=== PATIENT | female | born 1990 | race Caucasian/White ===

== ENCOUNTER 2023-04-25 13:49 | Inpatient (IN) | payer MEDICAID, OTHER ==
[~2023-04-25] VITALS: Ht 160 cm; Wt 65.0 kg
[2023-04-25] MEDS ORDERED: LORazepam 1 MG tablet PO ONE ×2 (15:10→18:20)
[2023-04-25] MEDS ORDERED: OLANZapine 5mg rapidly disint. tablet PO ONE (15:10)
[2023-04-25 15:44] LABS: BASOPHILS # (AUTO) 0.1 X10'3 (0-0.2); BASOPHILS % (AUTO) 0.8 % (0-1); EOSINOPHILS % (AUTO) 0.5 % (0-6); HEMATOCRIT 45.2 % (35.0-45.0); HEMOGLOBIN 15.4 g/dl (12.0-16.0); LYMPHOCYTES # (AUTO) 0.7 X10'3 (1.1-4.8); LYMPHOCYTES % (AUTO) 9.9 % (21-51); MEAN CORPUSCULAR HEMOGLOBIN 33.7 PG (27.0-31.0); MEAN CORPUSCULAR HGB CONC 34.1 g/dL (33.0-36.5); MEAN CORPUSCULAR VOLUME 98.9 FL (78-98); MEAN PLATELET VOLUME 8.8 FL (7.4-10.4); MONOCYTES # (AUTO) 0.7 X10'3 (0-0.9); MONOCYTES % (AUTO) 8.9 % (2-12); NEUTROPHILS # (AUTO) 5.9 X10'3 (1.8-7.7); NEUTROPHILS % (AUTO) 79.9 % (42-75); PLATELET COUNT 176 X10'3 (140-440); RED BLOOD COUNT 4.57 X10'6 (4.20-5.60); RED CELL DISTRIBUTION WIDTH 15.2 % (11.5-14.5); WHITE BLOOD COUNT 7.3 X10'3 (4.5-11.0)
[2023-04-25 16:07] LABS: ALANINE AMINOTRANSFERASE 86 U/L (12-78); ALBUMIN 4.6 G/DL (3.4-5.0); ALBUMIN/GLOBULIN RATIO 1.2 (1.1-1.5); ALKALINE PHOSPHATASE 87 IU/L (46-116); ANION GAP 14 (8-16); ASPARTATE AMINO TRANSFERASE 92 U/L (10-37); BILIRUBIN,TOTAL 1.6 MG/DL (0.1-1.0); BLOOD UREA NITROGEN 6 MG/DL (7-18); CHLORIDE 88 MMOL/L (99-107); ETHANOL < 10 MG/DL (<10); GLUCOSE 136 MG/DL (70-104); SODIUM 131 MMOL/L (135-145); THYROID STIMULATING HORMONE 4.01 ulU/ml (0.34-4.50); TOTAL CARBON DIOXIDE 29.4 MMOL/L (24-32); TOTAL PROTEIN 8.4 G/DL (6.4-8.2); eCRCL 111 ML/MIN; eGFR > 90 ML/MIN
[2023-04-25 16:27] LABS: POTASSIUM 2.7 MMOL/L (3.5-5.1)
[2023-04-25 16:30] LABS: BILIRUBIN,URINE LARGE (Neg); CLARITY,URINE CLOUDY (Clear); COLOR,URINE YELLOW (Yellow); GLUCOSE, URINE NEGATIVE (Neg); KETONES,URINE >=80 mg/dl (Neg); LEUKOCYTE ESTERASE ,URINE NEGATIVE (Neg); NITRITES, URINE POSITIVE (Neg); OCCULT BLOOD,URINE SMALL (Neg); PH,URINE 6.5 (4.8-8.0); PROTEIN,URINE >=300 mg/dl (Neg)
[2023-04-25] MEDS ORDERED: POTASSIUM BICARB 20meq eff tab 20 MEQ TABLET.EFF PO ONE (16:30)
[2023-04-25 16:31] LABS: URINE HCG NEGATIVE (NEG)
[2023-04-25 16:34] LABS: UA COLLECTION TYPE CLN CATCH MIDSTREAM
[2023-04-25 16:40] LABS: MUCUS STRANDS MANY /LPF (Neg); SQUAMOUS EPITHELIAL CELL,UR MANY /LPF (FEW)
[2023-04-25 16:41] LABS: BACTERIA,URINE 2+ /HPF (Neg); RBC,URINE 0-2 /HPF (0-2); WBC,URINE 0-4 /HPF (0-4)
[2023-04-25 16:43] LABS: URINE AMPHETAMINE SCREEN POSITIVE (Neg); URINE BARBITUATE SCREEN NEGATIVE (Neg); URINE BENZODIAZEPINES SCREEN NEGATIVE (Neg); URINE CANNABINOID SCREEN NEGATIVE (Neg); URINE COCAINE SCREEN NEGATIVE (Neg); URINE METHADONE SCREEN NEGATIVE (Neg); URINE OPIATE SCREEN NEGATIVE (Neg); URINE PHENCYCLIDINE SCREEN NEGATIVE (Neg)
[2023-04-25] MEDS ORDERED: QUEtiapine 25mg tablet PO STA (18:19)
--- NOTE | 2023-04-25 18:30 | NUR ---
REPORT CALLED TO DESHAUN TOLENTINO IN OVERFLOW, QUESTIONS ANSWERED. MEDICATED WITH ATIVAN PRIOR TO BEING TRANSFERRED TO OVERFLOW VIA W/C WITH PARENTS.
[2023-04-25] MEDS ORDERED: OLANZapine **IM** 10 mg inj. IM ONE (18:55)
--- NOTE | 2023-04-25 19:37 | NUR ---
Patient is very shakey and RN attempting to push fluids. Patient will not suck on the straw. RN felt patient's pulse and feels tachycardic. Skin is warm and dry. Patint looks dehydrated. Parents at bedside. RN to ask for I.V. fluids for patient. Continue to monitor.
--- NOTE | 2023-04-25 19:40 | NUR ---
Patient is non-verbal. Patient is not responding to questions. Patient does not appear to be oriented. Patient's father at bedside attempting to calm her as she is trembling. Continue to monitor.
[2023-04-25] MEDS ORDERED: magnesium oxide 400mg tablet PO ONE (19:50)
[2023-04-25] MEDS ORDERED: normal saline 1000ml 1,000 ML IV ONE ×2 (19:55→20:40)
[2023-04-25 19:59] LABS: MAGNESIUM 1.5 MG/DL (1.5-2.4)
--- NOTE | 2023-04-25 20:03 | NUR ---
28 Suboxone films with Mother if needed for admission to other than [facility].
--- NOTE | 2023-04-25 20:03 | NUR ---
Oralia Espinal [phone] home phone. [phone] Cell phone.
--- NOTE | 2023-04-25 20:19 | NUR ---
I.V. Started in left hand. RN placed patient on a [employer]. Patient's HR fluctuating between [address] Vanegas come look at patient. Dr. Vanegas ordered an EGK and a second bag of N.S. I.V. Patient is not and has not verbalized well. Patient is positive for meth and also did shrooms. RN had a difficult time getting a BP. BP by manual blood pressure cuff is WNL. Continue to monitor.
--- NOTE | 2023-04-25 20:20 | NUR ---
RN place patient in non-behavioral restraints, verbal order Dr. Vanegas due to not obeying commands, pulling at her I.V. site and confusion. Patient is nonverbal. Continue to monitor.
--- NOTE | 2023-04-25 21:51 | NUR ---
Patient's heart rate is going down to 128 to 142. Patient just started her second I.V. Bolus. Continue to monitor.
--- NOTE | 2023-04-25 21:55 | NUR ---
Patient continues to shake. Patient is not speaking, cannot swallow, is irritable. HR elevated. RN believes patient needs to be admitted under medical. Patient is positive for Meth and possibly shrooms but RN has not idea what else she might have taken that we don't test for. Patient is getting I.V. fluids and HR is coming down but still elevated. RN advised Dr. Vanegas who had come to re-evaluate patient who felt she was just fine. Patient needs higher level of care than ED Overflow. RN will speak to Cathie when she is available. Continue to monitor.
--- NOTE | 2023-04-25 23:07 | NUR ---
CAUTION!! QTc interval prolonged at 460. Please advise physician before requesting any anti-psychotic medication!
[2023-04-25] MEDS ORDERED: BUPR1FIL20 BU (23:14)
[2023-04-25] MEDS ORDERED: Potassium Cl inj 40 MEQ in sodium chloride 0.45% 500ml 500 ML IV ONE (23:15)
[2023-04-25] MEDS ORDERED: magnesium 2GM in 50ml NS 50 ML IV ONE (23:15)
--- NOTE | 2023-04-25 23:45 | NUR ---
ASSUMED CARE OF THE PT. PT IS NOT SPEAKING AT THIS TIME. PT WILL OPEN EYES WITH VERBAL STIMULATION BUT WILL NOT TRACK VOICES. PTS FACE IS RED/PINK AND APPEARS DIAPHORETIC. PT WILL MOVE HANDS AND LEGS AT WILL. PT DOES EXHIBIT TREMOR LIKE BEHAVIORS IN THE HANDS AT TIMES.
--- NOTE | 2023-04-25 23:53 | NUR ---
PT HAS AWOKEN AND IS ATTEMPTING TO COMMUNICATE WITH STAFF AND IS TRYING TO PULL OUT OF RESTRAINS AND SIT UP IN BED.
[2023-04-26] MEDS ORDERED: buprenorphine/naloxone 8MG-2MG SUBlingual film SL ONE (03:40)
--- NOTE | 2023-04-26 04:24 | NUR ---
PT IS NOW AWAKE AND ATTEMPING TO COMMUNICATE WITH STAFF. PT OCCASIONALLY WILL COMMUNICATE EFFECTIVELY BUT PREDOMINANTLY IS INCOMPREHENSIBLE. PT IS INCONTINENT OF URINE AT THIS TIME. RECTAL TEMPERATURE OF 100.3, MD CEE NOTIFIED. PT IS STILL NOT ABLE TO FOLLOW COMMANDS.
[2023-04-26 04:44] LABS: ALBUMIN 3.2 G/DL (3.4-5.0); ANION GAP 9 (8-16); BLOOD UREA NITROGEN 3 MG/DL (7-18); BUN/CREATININE RATIO 5.4 (10.0-20.0); CALCIUM 8.1 MG/DL (8.5-10.1); CHLORIDE 99 MMOL/L (99-107); CREATINE KINASE 435 U/L (26-192); CREATININE 0.56 MG/DL (0.40-0.90); GLUCOSE 84 MG/DL (70-104); POTASSIUM 3.5 MMOL/L (3.5-5.1); SODIUM 135 MMOL/L (135-145); eCRCL 119 ML/MIN; eGFR > 90 ML/MIN
[2023-04-26] MEDS ORDERED: LORazepam 2 mg/ml vial IV ONE ×2 (05:00→11:00)
[2023-04-26] MEDS ORDERED: potassium Cl 20 mEq SR tablet PO PRN ×2 (06:00)
[2023-04-26] MEDS ORDERED: magnesium 4gm in 100ml NS 100 ML IV PRN (06:00)
[2023-04-26] MEDS ORDERED: magnesium hydroxide 30ml (MOM) UD suspension PO PRN (06:00)
[2023-04-26] MEDS ORDERED: magnesium 2GM in 50ml NS 50 ML IV PRN (06:00)
[2023-04-26] MEDS ORDERED: acetaminophen 325mg tablet PO PRN (06:00)
[2023-04-26] MEDS ORDERED: potassium Cl 40MEQ/1/2NS 520ml 520 ML IV PRN (06:00)
[2023-04-26] MEDS ORDERED: mag hydrox/Alum hydrox/simeth 30ml oral suspension PO PRN (06:00)
[2023-04-26] MEDS ORDERED: ondansetron/PF 4mg/2ml inj IV PRN (06:00)
[2023-04-26] MEDS ORDERED: magnesium Cl slow-release 64mg tablet PO PRN (06:00)
[2023-04-26] MEDS: potassium cl 20mEq in 1/2 NS 1,000 ML IV SCH ×2 (07:10→18:02)
--- NOTE | 2023-04-26 07:34 | NUR ---
Assessed pt bedside this morning and use of retraints. Pt vss - see interventions list. Pt talking incoherently and pulling against retraints. Skin intact and without issue underneath restraints. MD Pena paged for fluids and additional aggitation meds. Will continue to monitor.
[2023-04-26 07:43] LABS: MAGNESIUM 1.9 MG/DL (1.5-2.4); POTASSIUM 3.8 MMOL/L (3.5-5.1)
[2023-04-26] MEDS: K and/or MAG REPLACEMENT MC SCH ×2 (08:00→20:00)
[2023-04-26] MEDS ORDERED: magnesium oxide 400mg tablet PO ONE (08:00)
[2023-04-26] MEDS ORDERED: POTASSIUM BICARB 20meq eff tab 20 MEQ TABLET.EFF PO ONE (08:00)
[2023-04-26] MEDS: haloperidol lactate 5mg/ml inj IM PRN ×2 (08:14→23:04)
[2023-04-26] MEDS: docusate sod 100mg capsule PO SCH ×2 (08:28→20:59)
[2023-04-26] MEDS: enoxaparin 40mg/0.4ml syringe SUBCUT SCH (08:29)
--- NOTE | 2023-04-26 12:34 | NUR ---
MD SO PAGED REGARDING AGITATION MEDS FOR PATIENT. PATIENT STILL AGITATED AND ATTEMPTING TO GET OUT OF BED. SENTENCES INCOHERENT.
--- NOTE | 2023-04-26 13:37 | NUR ---
CHANGED PT PULL UP- URINE AND ON HER PERIOD. PT CONFUSED UNABLE TO COMMUNICATE.
--- NOTE | 2023-04-26 14:22 | NUR ---
MD SO PAGED AND REQUESTED TO VISIT BEDSIDE AND DISCUSS PT'S CONDITION WITH PARENTS.
--- NOTE | 2023-04-26 17:46 | NUR ---
PAGED REGARDING PATIENT'S STATUS. CIWA SCORE>20 . RN REQUESTED ETOH WITHDRAWL PROTOCOL. ORDERS TO BE PLACED. WILL CONTINUE TO MONITOR.
--- NOTE | 2023-04-26 18:37 | NUR ---
PT REASSESSED AND FOUND TO BE RESTING. PT APPEARING MUCH LESS AGGITATED. TRIALED OFF RESTRAINTS, PARENTS IN ROOM AT THIS TIME.
[2023-04-26 19:40] VITALS: BP 109/79; PULSE 89; RESP 16; TEMP 97.9; O2SAT 91
[2023-04-26 20:00] VITALS: RESP 16; O2SAT 91
[2023-04-26] MEDS: LORazepam 2 mg/ml vial IV PRN (21:00)
[2023-04-26 22:00] VITALS: BP 110/77; PULSE 98; RESP 18; TEMP 98; O2SAT 99
[2023-04-27] MEDS: potassium cl 20mEq in 1/2 NS 1,000 ML IV SCH ×2 (03:49→17:32)
--- NOTE | 2023-04-27 06:26 | NUR ---
Patient in room ORTHO 4020. I have received report from Ankita and had the opportunity to ask questions and assume patient care.
[2023-04-27 06:55] LABS: BASOPHILS # (AUTO) 0.1 X10'3 (0-0.2); BASOPHILS % (AUTO) 1.2 % (0-1); EOSINOPHILS # (AUTO) 0.2 X10'3 (0-0.9); HEMATOCRIT 39.6 % (35.0-45.0); HEMOGLOBIN 13.2 g/dl (12.0-16.0); LYMPHOCYTES # (AUTO) 1.4 X10'3 (1.1-4.8); LYMPHOCYTES % (AUTO) 32.5 % (21-51); MEAN CORPUSCULAR HEMOGLOBIN 33.8 PG (27.0-31.0); MEAN CORPUSCULAR HGB CONC 33.3 g/dL (33.0-36.5); MEAN CORPUSCULAR VOLUME 101.4 FL (78-98); MEAN PLATELET VOLUME 8.8 FL (7.4-10.4); MONOCYTES # (AUTO) 0.5 X10'3 (0-0.9); NEUTROPHILS # (AUTO) 2.1 X10'3 (1.8-7.7); NEUTROPHILS % (AUTO) 50.3 % (42-75); PLATELET COUNT 144 X10'3 (140-440); RED BLOOD COUNT 3.91 X10'6 (4.20-5.60); RED CELL DISTRIBUTION WIDTH 14.7 % (11.5-14.5); WHITE BLOOD COUNT 4.3 X10'3 (4.5-11.0)
[2023-04-27 07:00] LABS: PROTHROMBIN TIME 10.9 SECONDS (9.0-12.0)
[2023-04-27 07:12] LABS: ALANINE AMINOTRANSFERASE 55 U/L (12-78); ALBUMIN 3.1 G/DL (3.4-5.0); ALKALINE PHOSPHATASE 66 IU/L (46-116); AMYLASE 29 U/L (25-115); ANION GAP 8 (8-16); ASPARTATE AMINO TRANSFERASE 85 U/L (10-37); BILIRUBIN,TOTAL 0.9 MG/DL (0.1-1.0); CALCIUM 8.7 MG/DL (8.5-10.1); CHLORIDE 98 MMOL/L (99-107); CREATININE 0.43 MG/DL (0.40-0.90); GLUCOSE 72 MG/DL (70-104); MAGNESIUM 1.8 MG/DL (1.5-2.4); PHOSPHORUS 3.6 MG/DL (2.3-4.5); POTASSIUM 3.8 MMOL/L (3.5-5.1); SODIUM 133 MMOL/L (135-145); TOTAL PROTEIN 6.2 G/DL (6.4-8.2); eCRCL 155 ML/MIN; eGFR > 90 ML/MIN
[2023-04-27] MEDS: K and/or MAG REPLACEMENT MC SCH ×2 (07:21→20:00)
[2023-04-27 07:33] LABS: BUN/CREATININE RATIO 2.3 (10.0-20.0)
[2023-04-27 07:45] LABS: BLOOD UREA NITROGEN 1 MG/DL (7-18); LIPASE 29 U/L (16-77)
[2023-04-27] MEDS: docusate sod 100mg capsule PO SCH ×2 (10:06→19:39)
[2023-04-27] MEDS: multivitamins, therapeutics tablet PO SCH (10:06)
[2023-04-27] MEDS: enoxaparin 40mg/0.4ml syringe SUBCUT SCH (10:07)
[2023-04-27] MEDS: LORazepam 2 mg/ml vial IV PRN (10:08)
[2023-04-27 18:00] VITALS: BP 121/79; PULSE 107; RESP 21; TEMP 98.2; O2SAT 97
[2023-04-27 20:00] VITALS: RESP 21; O2SAT 97
[2023-04-27 22:00] VITALS: BP 116/84; PULSE 89; RESP 16; TEMP 97.6; O2SAT 100
[2023-04-28] VITALS (7 sets, daily range): BP systolic 113–128; BP diastolic 71–86; PULSE 71–115; RESP 16–18; TEMP 98.2–98.7; O2SAT 95–100
[2023-04-28] MEDS: potassium cl 20mEq in 1/2 NS 1,000 ML IV SCH ×3 (00:45→21:24)
[2023-04-28 06:43] LABS: BASOPHILS % (AUTO) 1.1 % (0-1); EOSINOPHILS # (AUTO) 0.2 X10'3 (0-0.9); EOSINOPHILS % (AUTO) 4.3 % (0-6); HEMOGLOBIN 13.7 g/dl (12.0-16.0); LYMPHOCYTES # (AUTO) 1.3 X10'3 (1.1-4.8); LYMPHOCYTES % (AUTO) 31.9 % (21-51); MEAN CORPUSCULAR HGB CONC 33.4 g/dL (33.0-36.5); MEAN PLATELET VOLUME 8.3 FL (7.4-10.4); MONOCYTES # (AUTO) 0.6 X10'3 (0-0.9); MONOCYTES % (AUTO) 15.8 % (2-12); NEUTROPHILS # (AUTO) 1.9 X10'3 (1.8-7.7); NEUTROPHILS % (AUTO) 46.9 % (42-75); PLATELET COUNT 172 X10'3 (140-440); RED BLOOD COUNT 4.02 X10'6 (4.20-5.60)
--- NOTE | 2023-04-28 06:58 | NUR ---
Patient in room ORTHO 4020. I have received report from Ankita TOLENTINO and had the opportunity to ask questions and assume patient care.
[2023-04-28 07:09] LABS: ALANINE AMINOTRANSFERASE 59 U/L (12-78); ALBUMIN 3.1 G/DL (3.4-5.0); ALBUMIN/GLOBULIN RATIO 0.9 (1.1-1.5); ALKALINE PHOSPHATASE 74 IU/L (46-116); AMYLASE 64 U/L (25-115); ANION GAP 7 (8-16); ASPARTATE AMINO TRANSFERASE 67 U/L (10-37); BILIRUBIN,TOTAL 0.7 MG/DL (0.1-1.0); BLOOD UREA NITROGEN 1 MG/DL (7-18); BUN/CREATININE RATIO 2.3 (10.0-20.0); CALCIUM 9.2 MG/DL (8.5-10.1); CHLORIDE 99 MMOL/L (99-107); CREATININE 0.43 MG/DL (0.40-0.90); GLUCOSE 102 MG/DL (70-104); MAGNESIUM 1.9 MG/DL (1.5-2.4); PHOSPHORUS 3.8 MG/DL (2.3-4.5); POTASSIUM 4.3 MMOL/L (3.5-5.1); SODIUM 134 MMOL/L (135-145); TOTAL CARBON DIOXIDE 28.1 MMOL/L (24-32); TOTAL PROTEIN 6.4 G/DL (6.4-8.2); eCRCL 155 ML/MIN; eGFR > 90 ML/MIN
[2023-04-28 07:10] LABS: LIPASE 102 U/L (16-77)
[2023-04-28] MEDS: multivitamins, therapeutics tablet PO SCH (08:37)
[2023-04-28] MEDS: docusate sod 100mg capsule PO SCH ×2 (08:37→19:30)
[2023-04-28] MEDS: enoxaparin 40mg/0.4ml syringe SUBCUT SCH (08:41)
[2023-04-28] MEDS: K and/or MAG REPLACEMENT MC SCH ×2 (08:42→20:00)
--- NOTE | 2023-04-28 12:12 | NUR ---
PAGER ID: [phone] MESSAGE: Renaldo Blackburn Re: [id number] Vanessa. Patient considers moderate smoker. Puffs 10 times an hour on 5mg vape. Requesting nicotine patch. Thanks [phone]
--- NOTE | 2023-04-28 14:08 | NUR ---
PAGER ID: [phone] MESSAGE: Renaldo Blackburn Re: [id number]. Patient considers self a moderate smoker. Puffs 10 times an hour on 5 mg vape. Requesting nicotine patch. Thanks. 543 2[address] page.
[2023-04-28] MEDS: nicotine 7mg patch - 24hr TD SCH (17:33)
--- NOTE | 2023-04-28 18:00 | NUR ---
Student documentation: I have reviewed all interventions, assessments performed and documented by Shane TOLENTINO. Student Medication Administration: For this medication-pass time frame, all medication were reviewed, dispensed, administered and documented per hospital policy by Shane TOLENTINO.
--- NOTE | 2023-04-28 18:34 | NUR ---
Problems reprioritized. Patient report given, questions answered & plan of care reviewed with Prudence RN.
[2023-04-29 05:17] LABS: PROTHROMBIN TIME 10.5 SECONDS (9.0-12.0)
[2023-04-29 05:23] LABS: BASOPHILS % (AUTO) 1.1 % (0-1); EOSINOPHILS # (AUTO) 0.1 X10'3 (0-0.9); HEMATOCRIT 41.3 % (35.0-45.0); LYMPHOCYTES # (AUTO) 1.4 X10'3 (1.1-4.8); MEAN PLATELET VOLUME 8.3 FL (7.4-10.4); MONOCYTES # (AUTO) 0.7 X10'3 (0-0.9); WHITE BLOOD COUNT 3.3 X10'3 (4.5-11.0)
[2023-04-29 05:27] LABS: EOSINOPHILS % (AUTO) 4.4 % (0-6); HEMOGLOBIN 13.9 g/dl (12.0-16.0); LYMPHOCYTES % (AUTO) 43.5 % (21-51); MEAN CORPUSCULAR HEMOGLOBIN 34.2 PG (27.0-31.0); MEAN CORPUSCULAR HGB CONC 33.7 g/dL (33.0-36.5); MEAN CORPUSCULAR VOLUME 101.3 FL (78-98); MONOCYTES % (AUTO) 20.9 % (2-12); NEUTROPHILS % (AUTO) 30.1 % (42-75); PLATELET COUNT 210 X10'3 (140-440); RED BLOOD COUNT 4.08 X10'6 (4.20-5.60)
[2023-04-29 05:36] LABS: ALANINE AMINOTRANSFERASE 62 U/L (12-78); ALBUMIN 3.2 G/DL (3.4-5.0); ALKALINE PHOSPHATASE 79 IU/L (46-116); AMYLASE 61 U/L (25-115); ANION GAP 5 (8-16); ASPARTATE AMINO TRANSFERASE 56 U/L (10-37); BILIRUBIN,TOTAL 0.4 MG/DL (0.1-1.0); BLOOD UREA NITROGEN 1 MG/DL (7-18); BUN/CREATININE RATIO 2.5 (10.0-20.0); CALCIUM 9.2 MG/DL (8.5-10.1); CHLORIDE 102 MMOL/L (99-107); MAGNESIUM 1.9 MG/DL (1.5-2.4); PHOSPHORUS 4.8 MG/DL (2.3-4.5); SODIUM 137 MMOL/L (135-145); TOTAL CARBON DIOXIDE 30.2 MMOL/L (24-32); eCRCL 167 ML/MIN; eGFR > 90 ML/MIN
[2023-04-29 05:38] LABS: ALBUMIN/GLOBULIN RATIO 0.9 (1.1-1.5); GLUCOSE 104 MG/DL (70-104); LIPASE 76 U/L (16-77); TOTAL PROTEIN 6.8 G/DL (6.4-8.2)
[2023-04-29] MEDS: potassium cl 20mEq in 1/2 NS 1,000 ML IV SCH ×2 (05:46→15:10)
[2023-04-29 06:34] VITALS: BP 117/76; PULSE 71; RESP 16; TEMP 98.1; O2SAT 100
--- NOTE | 2023-04-29 07:08 | NUR ---
PAGER ID: [phone] MESSAGE: EDER ROBERTSON [id number] RE:[id number] José Luis GOMEZ PATIENTS [id number] HAS 3 DAYS AGO AND PATIENT CURRENTLY HAS A SITTER WITH NO ORDER, THIS NEEDS TO BE ADDRESSED. THANKS
[2023-04-29 08:00] VITALS: RESP 16; O2SAT 100
[2023-04-29] MEDS: K and/or MAG REPLACEMENT MC SCH (08:00)
[2023-04-29] MEDS: enoxaparin 40mg/0.4ml syringe SUBCUT SCH (08:43)
[2023-04-29] MEDS: docusate sod 100mg capsule PO SCH (08:43)
[2023-04-29] MEDS: multivitamins, therapeutics tablet PO SCH (08:43)
[2023-04-29] MEDS: nicotine 7mg patch - 24hr TD SCH (08:43)
[2023-04-29 09:13] LABS: TOTAL CELLS COUNTED 100
[2023-04-29 09:14] LABS: PLATELET ESTIMATE NORMAL; POIKILOCYTOSIS FEW
--- NOTE | 2023-04-29 09:50 | NUR ---
PAGER ID: [phone] MESSAGE: Renaldo Blackburn Re: [id number]. Positive MRSA nasal swab. Thanks. [phone]
[2023-04-29 10:51] VITALS: BP 126/91; PULSE 83; RESP 16; TEMP 98.3; O2SAT 100
--- NOTE | 2023-04-29 15:15 | NUR ---
[facility] Mental health psychologist finished his assessment and reports Pt does not meet criteria to have a Mental Hold and will write report hilda. Pt given evaluation results and release to medical doctor for discharge. Dr. Coelho came to the floor and read report handed by this nurse. states pt can be Discharge today. Primary RN will be notified after he is back from lunch.
[2023-04-29 16:22] VITALS: RESP 16
--- NOTE | 2023-04-29 17:51 | NUR ---
Patient discharged home with all belongings IV taken out and teaching done with family in the room.
[2023-05-01] MEDS ORDERED: thiamine 100mg tablet PO SCH (08:00)
[2023-05-01] MEDS ORDERED: folic acid 1mg tablet PO SCH (08:00)
== END 2023-04-29 17:05 | disposition home or self-care (01) | DRG 425 ==
LOC: ER 13:51 → ED HOLD 04-26 06:03 → ORTHO 4S 04-26 19:40
PROVIDERS: ADMIT Internal Medicine; ATTEND Internal Medicine
DX: E87.6 Hypokalemia (principal); F10.931 Alcohol use, unspecified with withdrawal delirium; F15.93 Other stimulant use, unspecified with withdrawal; F15.959 Other stimulant use, unspecified with stimulant-induced psychotic disorder, unspecified; R79.89 Other specified abnormal findings of blood chemistry; Y90.0 Blood alcohol level of less than 20 mg/100 ml; Z20.822 Contact with and (suspected) exposure to COVID-19; F32.A Depression, unspecified
CPT/HCPCS: 36415; 70450; 80048; 80053; 80305; 80320; 81001; 81025; 82150; 82550; 83690; 83735; 84100; 84132; 84145; 84443; 85007; 85025; 85610; 87081; 87811; 93005; 97161; 97530; 99285; G0378; J1630; J1650; J2060; J3475; J3480; J3490; J7030

== ENCOUNTER 2023-11-27 10:25 | Emergency (ER) | payer MEDICAID ==
[~2023-11-27] VITALS: Ht 160 cm; Wt 58.9 kg
[~2023-11-27 10:25] MED LIST: BUPR1FIL20 BU
[2023-11-27 10:29] VITALS: BP 134/95; TEMP 98.2; O2SAT 95
[2023-11-27 11:15] LABS: ALANINE AMINOTRANSFERASE 59 U/L (12-78); ALBUMIN 3.9 G/DL (3.4-5.0); ALBUMIN/GLOBULIN RATIO 0.9 (1.1-1.5); ALKALINE PHOSPHATASE 78 IU/L (46-116); ANION GAP 8 (8-16); ASPARTATE AMINO TRANSFERASE 31 U/L (10-37); BILIRUBIN,TOTAL 0.6 MG/DL (0.1-1.0); BLOOD UREA NITROGEN 8 MG/DL (7-18); BUN/CREATININE RATIO 12.5 (10.0-20.0); CALCIUM 9.3 MG/DL (8.5-10.1); CHLORIDE 98 MMOL/L (99-107); CREATININE 0.64 MG/DL (0.40-0.90); ETHANOL 56 MG/DL (<10); GLUCOSE 99 MG/DL (70-104); LIPASE 88 U/L (16-77); MAGNESIUM 2.2 MG/DL (1.5-2.4); POTASSIUM 3.8 MMOL/L (3.5-5.1); SODIUM 135 MMOL/L (135-145); TOTAL PROTEIN 8.1 G/DL (6.4-8.2); eCRCL 104 ML/MIN; eGFR > 90 ML/MIN
[2023-11-27 11:24] VITALS: RESP 14
[2023-11-27] MEDS ORDERED: LORazepam 2 mg/ml vial IV ONE (11:40)
[2023-11-27 11:53] LABS: URINE HCG NEGATIVE (NEG)
[2023-11-27 11:54] LABS: BILIRUBIN,URINE NEGATIVE (Neg); CLARITY,URINE SLIGHTLY CLOUDY (Clear); COLOR,URINE YELLOW (Yellow); GLUCOSE, URINE NEGATIVE (Neg); KETONES,URINE NEGATIVE (Neg); LEUKOCYTE ESTERASE ,URINE TRACE (Neg); NITRITES, URINE NEGATIVE (Neg); OCCULT BLOOD,URINE NEGATIVE (Neg); PROTEIN,URINE NEGATIVE (Neg); UROBILINOGEN,URINE 0.2 E.U/dL (0.2-1.0)
[2023-11-27 12:01] LABS: SQUAMOUS EPITHELIAL CELL,UR MODERATE /LPF (FEW); UA COLLECTION TYPE CLN CATCH MIDSTREAM
[2023-11-27 12:02] LABS: BACTERIA,URINE 1+ /HPF (Neg); RBC,URINE 0-2 /HPF (0-2); WBC CLUMPS,URINE FEW /HPF (NEGATIVE)
[2023-11-27 12:04] LABS: URINE AMPHETAMINE SCREEN NEGATIVE (Neg); URINE BARBITUATE SCREEN NEGATIVE (Neg); URINE BENZODIAZEPINES SCREEN NEGATIVE (Neg); URINE CANNABINOID SCREEN NEGATIVE (Neg); URINE COCAINE SCREEN NEGATIVE (Neg); URINE METHADONE SCREEN NEGATIVE (Neg); URINE OPIATE SCREEN NEGATIVE (Neg); URINE PHENCYCLIDINE SCREEN NEGATIVE (Neg)
[2023-11-27] MEDS: ondansetron/PF 4mg/2ml inj IV ONE (12:07)
[2023-11-27] MEDS: normal saline 1000ML IV soln IVB ONE (12:07)
[2023-11-27] MEDS: diazepam inj 5 MG/ML inj. IV ONE (12:12)
[2023-11-27] MEDS ORDERED: MECO10005 PO (12:34)
[2023-11-27] MEDS ORDERED: FOLI1TAB27 PO (12:34)
[2023-11-27] MEDS ORDERED: THIA50TA10 PO (12:34)
[2023-11-27] MEDS ORDERED: LORA-269 PO (12:34)
[2023-11-27] MEDS ORDERED: ONDA8TAB13 PO (12:34)
== END 2023-11-27 12:56 | disposition home or self-care (01) ==
LOC: ER 10:26
DX: F10.939 Alcohol use, unspecified with withdrawal, unspecified (principal); F12.90 Cannabis use, unspecified, uncomplicated; F15.10 Other stimulant abuse, uncomplicated; F11.10 Opioid abuse, uncomplicated; Y90.6 Blood alcohol level of 120-199 mg/100 ml
CPT/HCPCS: 36415; 80053; 80305; 80320; 81001; 81025; 82140; 83690; 83735; 87077; 87088; 87186; 96365; 96375; 99284; J2405; J3360; J7030; 96374

== ENCOUNTER 2025-05-05 10:38 | Emergency (ER) | payer MEDICAID ==
[~2025-05-05] VITALS: Ht 161.3 cm; Wt 58.7 kg
[~2025-05-05 10:38] MED LIST changes: +FOLI1TAB27 PO; +LORA-269 PO; +MECO10005 PO; +ONDA-245 PO; +THIA50TA10 PO
[2025-05-05 10:41] VITALS: TEMP 97.1
--- NOTE | 2025-05-05 11:40 | Physician Documentation ---
History of Present Illness ~ Chief Complaint: Wound Re-Check Stated Complaint: TONGUE LAC Time Seen by MD: 10:46 Primary Medical Doctor: NONE HPI The patient is seen today with complaints of a crush injury to her tongue after she bit her tongue while having a seizure few days ago. Patient states she sometimes has seizures when she comes down off alcohol. Patient denies any cur rent chest pain or shortness of breath or abdominal pain. She states the swelling and pain of her tongue has become significantly decreased in his improving greatly over the last few days. Her concern coming in today is that she feels as though there worms in her tongue or feels something moving around in her tongue. She has no other concern or complaint at this time. Tetanus within 5 years?: No Medication Reconciliation Allergies: Coded Allergies: No Known Allergies (Unverified , 04/25/23) Scheduled Buprenorphine HCl/Naloxone HCl (Buprenorphine-Nalox 8-2Mg Film), 1 FILM BU DAILY, (Reported) Folic Acid* (Folic Acid*), 1 TAB PO DAILY Lorazepam (Ativan), 1 TAB PO Q6H Mecobalamin (B12 Active), 1 TAB PO DAILY Thiamine HCl (Vitamin B-1), 2 TAB PO DAILY Scheduled PRN Ondansetron 8mg ODT (Ondansetron Odt), 1 TAB PO TID PRN for nausea/vomiting Past Medical History Past Medical History: Depression Past Surgical History: no surgical history Alcohol Use: Occasionally Drug Use: marijuana, methamphetamine, cocaine Lives In: Home Review of Systems Constitutional: Denies: chills, fever, weakness Eyes: Denies: pain, blurred vision ENT: Denies: ear pain, nose pain, throat pain, mouth pain Respiratory: Denies: cough, shortness of breath Cardiovascular: Denies: chest pain, palpitations Gastrointestinal: Denies: abdominal pain, nausea, vomiting Genitourinary: Denies: burning, dysuria Female Genitalia: Denies: vaginal discharge, pelvic pain Neurological: Denies: headache, dizziness Musculoskeletal: Denies: pain, swelling Integumentary: Denies: rash, lesions Allergic/Immunologic: Denies: hives, itching Hematologic/Lymphatic: Denies: no symptoms reported Psychiatric: Denies: depression, anxiety Physical Exam Vital Signs: Temperature: 97.1, Source: Temporal, Heart Rate: 94, Respiratory Rate: 18, BP: 101/67, Pulse Oximetry: 100, Weight: 58.700 Oxygen Flow Rate: 0 Physical Exam General: Awake and Alert, no acute distress. HEENT: Patient on exam does have extensive bite tirso injury to the distal quarter of her tongue with some mild swelling. I do not appreciate any purulent drainage or active infection or other concerns in the tongue appears intact. Conjunctiva pink, Sclera clear, Mucus Membranes moist. Neck: Supple without masses and tenderness. Resp: Unlabored. Lungs clear to auscultation bilaterally. Heart: Regular Rate and rhythm, normal S1 and S2 without murmur, rub or gallop. Abdomen: Soft and non tender no organomegaly Extremities: No cyanosis,clubbing or edema. Skin: Warm and Dry. Progress Results/Orders Results/Orders Vital Signs 05/05/25 10:41 Temp 97.1 Pulse 94 Resp 18 B/P (MAP) 101/67 Pulse Ox 100 O2 Flow Rate 0 Medical Decision Making Additional information obtaine: N/A Findings The patient is seen today with complaints of a crush injury to her tongue after she bit her tongue while having a seizure few days ago. Patient states she sometimes has seizures when she comes down off alcohol. Patient denies any current chest pain or shortness of breath or abdominal pain. She states the swelling and pain of her tongue has become significantly decreased in his improving greatly over the last few days. Her concern coming in today is that s he feels as though there worms in her tongue or feels something moving around in her tongue. She has no other concern or complaint at this time. Patient will continue to monitor symptoms closely. Patient will follow up with primary care in 2-5 days if no better as needed sooner. Return to ED with any worsening, concerning or changing symptoms. Patient may perform saltwater rin ses daily. Differential Dx:Considerations: Include: Abscess, Cellulitis, Healing wound Departure Disposition: HOME / SELF CARE / HOMELESS Impression: Primary Impression: Wound Condition: Stable Additional Instructions: Patient will continue to monitor symptoms closely. Patient will follow up with primary care in 2-5 days if no better as needed sooner. Return to ED with any worsening, concerning or changing symptoms. Patient may perform saltwater rinses daily. Referrals: NO PRIMARY CARE PROVIDER (PCP) Signature Scribe Signature: No scribe Attestation: No scribe SHLOMO BANKS PAC May 05, 2025 11:40
[2025-05-05 11:43] VITALS: BP 87/61; PULSE 90; RESP 16; O2SAT 98
== END 2025-05-05 11:53 | disposition home or self-care (01) ==
LOC: ER 10:39
DX: S00.502A Unspecified superficial injury of oral cavity, initial encounter (principal); W23.0XXA Caught, crushed, jammed, or pinched between moving objects, initial encounter; Y93.89 Activity, other specified; Y92.89 Other specified places as the place of occurrence of the external cause; Y99.8 Other external cause status
CPT/HCPCS: 99282